=== PATIENT | female | born 1965 | race African-American/Black ===

== ENCOUNTER 2018-12-11 21:01 | Inpatient (IN) | payer OTHER ==
[~2018-12-11] VITALS: Ht 160 cm; Wt 108.4 kg
[2018-12-11 21:06] VITALS: BP 146/88
[2018-12-11 21:42] LABS: HEMOGLOBIN 14.2 gm/dL (12.0-15.0); MCH 32.7 pg (26.0-34.0); MCHC 34.6 g/dL (28.0-37.0); MCV 94.5 fL (80.0-100.0); PLATELET COUNT 180 thou/uL (150-400); RBC 4.34 mil/uL (4.20-5.00); RDW 13.8 % (10.5-14.5); WBC 10.9 thou/uL (4.0-11.0)
[2018-12-11 21:52] LABS: ANION GAP 13 mmol/L (7-16); BUN 19 mg/dL (7-18); CALCIUM 8.9 mg/dL (8.5-10.1); CHLORIDE 98 mmol/L (98-107); CO2 20 mmol/L (21-32); CREATININE 1.5 mg/dL (0.6-1.0); GLUCOSE 82 mg/dL (74-106); POTASSIUM 4.7 mmol/L (3.5-5.1); SODIUM 131 mmol/L (136-145)
[2018-12-11 22:00] LABS: ALBUMIN 2.8 g/dL (3.4-5.0); SGOT 55 U/L (15-37); SGPT 27 U/L (30-65); TOTAL BILIRUBIN 0.5 mg/dL (<0.1-1.0); TOTAL PROTEIN 7.7 g/dL (6.4-8.2); TROPONIN-I <0.06 ng/mL (<0.06)
[2018-12-11 22:20] LABS: ABSOLUTE NEUTROPHILS 7.5 thou/uL (1.4-8.2)
[2018-12-11 22:21] LABS: PLATELET ESTIMATE NORMAL; POLYCHROMASIA 1+
[2018-12-12] VITALS (9 sets, daily range): BP systolic 97–146; BP diastolic 52–90
--- NOTE | 2018-12-12 00:21 | NUR ---
SBAR AND DOCTORS NOTE TO CCU
[2018-12-12] MEDS ORDERED: ALBUTEROL2.5 MG/0.1 INH (00:43)
[2018-12-12] MEDS ORDERED: BREO ELLIPTA 21 EACH IH (00:43)
[2018-12-12] MEDS ORDERED: [UNRECOGNIZED DRUG - SUPPLY] (00:45)
[2018-12-12] MEDS ORDERED: MUCINEX600 MG (00:45)
[2018-12-12] MEDS ORDERED: NYAMYC15 GM TOP (00:46)
[2018-12-12 03:37] LABS: CALCIUM 7.9 mg/dL (8.5-10.1); CREATININE 1.3 mg/dL (0.6-1.0); POTASSIUM 4.1 mmol/L (3.5-5.1)
--- NOTE | 2018-12-12 05:01 | NUR ---
ASSUME CARE 0130. PT RUINNING A TEMP OF 99.0. TYLENOL GIVEN. PT ON ABX. TESTED POSITIVE FOR INFLUENZA A. ST ON NMONITOR. RESTING WELL. COMPLAINS OF NON CARDIAC CHEST PAIN. TOLERATES ACTIVITY WELL. ASSESSMENT CHARTED. PROGRESSING WITH POC. PLAN IS TO CONTINUE TREATING WITH ABX. WILL CONTINUE TO MONITOR AND FOLLOW WITH POC
--- NOTE | 2018-12-12 08:23 | EKG ---
[address] [address] ELECTROCARDIOGRAM REPORT Name: VASQUEZAMINA Room #: 210-P ADM IN M.R.#: [id number] Admission: 12/11/18 Attend Phys: Nilam Tadeo Discharge: Date of : 67 Report #: [id number] THIS REPORT FOR: //name// [facility] ED Test Date: 2018-12-11 Test Time: 21:14:08 Pat Name: AMINA VASQUEZ Department: Room: 210 Gender: F Research Program Internship: BRANDON : 1965 Requested By: Maren Muniz Order Number: [id number] MD: Ayaz Vargas Measurements Intervals Mcintosh Rate: 122 P: 70 MD: 159 QRS: 51 QRSD: 89 T: -15 QT: 319 QTc: 455 Interpretive Statements Sinus tachycardia Borderline T abnormalities, inferior leads Baseline wander in lead(s) V1 No previous ECG available for comparison Electronically Signed On 12-12-2018 8:22:58 DENTAL OFFICE COORDINATOR by Ayaz Vargas [email or web address] <ELECTRONICALLY SIGNED> By: Ayaz Vargas MD 12/12/18821 13 13 Ayaz Vargas MD /GM
[2018-12-12] MEDS ORDERED: SYMBICORT160 MCG/4. INH (11:19)
[2018-12-12] MEDS ORDERED: QUETIAPINE FUM100 MG PO (11:19)
[2018-12-12] MEDS ORDERED: NEURONTIN 400400 M1 PO (11:19)
[2018-12-12] MEDS ORDERED: SINGULAIR 10 MG10 M1 PO (11:20)
[2018-12-12] MEDS ORDERED: PROAIR HFA8.5 GM INH (11:20)
[2018-12-12] MEDS ORDERED: FLONASE 0.05%50 MCG NASAL (11:21)
[2018-12-12] MEDS ORDERED: NORCO 7.5-3251 EACH PO (11:22)
[2018-12-12] MEDS ORDERED: QUINAPRIL 20 MG20 MG PO (11:22)
[2018-12-12] MEDS ORDERED: HYDROCHLOROTH12.5 M1 PO (11:22)
[2018-12-12] MEDS ORDERED: SEROQUEL400 MG PO (11:23)
[2018-12-12] MEDS ORDERED: RIZATRIPTAN10 MG PO (11:24)
[2018-12-12] MEDS ORDERED: ATIVAN0.5 MG PO (11:24)
[2018-12-12] MEDS ORDERED: REMERON30 MG PO (11:26)
[2018-12-12] MEDS ORDERED: HYDROXYCHLOROQ200 M1 PO (11:26)
[2018-12-12] MEDS ORDERED: FOLIC ACID1 MG PO (11:27)
[2018-12-12] MEDS ORDERED: ZANAFLEX4 MG PO (11:27)
--- NOTE | 2018-12-12 12:20 | NUR ---
ASSUMED CARE OF PT AT SHIFT CHANGE. ASSESSMENTS CHARTED. MEDS GIVEN PER JAN. PT AOX4, C/O NON CARDIAC CHEST PAIN FROM COUGHING, BODY ACHES, MANAGED WITH PO MEDS AND COUGH SYRUP. NO SIGNS OF DISTRESS NOTED. O2 SATS WNL ON 2L. PT UP STANDBY ASSIST, WEAK, BUT STEADY GAIT. URINE OUTPUT [place]. WILL CONTINUE TO MONITOR AND FOLLOW POC.
[2018-12-12] MEDS ORDERED: PREDNISONE 5 MG5 M1 PO (13:37)
[2018-12-12] MEDS ORDERED: CALCIUM 600 +1 EAC1 PO (13:37)
[2018-12-12] MEDS ORDERED: NICOTROL10 MG INH (13:38)
[2018-12-13 00:15] VITALS: BP 128/59
[2018-12-13 04:07] LABS: CALCIUM 7.9 mg/dL (8.5-10.1); CREATININE 1.4 mg/dL (0.6-1.0); POTASSIUM 4.5 mmol/L (3.5-5.1)
[2018-12-13 04:37] VITALS: BP 138/78
--- NOTE | 2018-12-13 07:47 | NUR ---
ASSUME CARE 1900. PT COMPLAINS OF CONSISTENT CHEST PAIN DUE TO CONGHING. TESSALON PEARLS ORDERED AND PAIN MEDS GIVEN TO MANAGE PAIN. ASSESSMENT CHARTED. PROGRESSING WITH POC. CPAP AT NIGHT. PLAN IS TO CONTINUE FLU AND PNA TREATMENTS. WILL CONTINUE TO MONITOR AND FOLLOW WITH POC
[2018-12-13 08:00] VITALS: BP 121/77
[2018-12-13 12:22] VITALS: BP 126/80
[2018-12-13 17:32] VITALS: BP 136/75
--- NOTE | 2018-12-13 19:30 | NUR ---
ASSUMED CARE OF PT AT SHIFT CHANGE. ASSESSMENTS CHARTED. MEDS GIVEN PER JAN. PT AOX4, VSS, UP X1 TO STANDYBY ASSIST. O2 SAT WNL ON 2L O2, NO S/SX OF CARDIAC OR RESP DISTRESS NOTED. NSR ON MONITOR. NO C/O SOA. WILL CONTINUE TO MONITOR AND FOLLOW POC.
[2018-12-13 20:19] VITALS: BP 121/74
[2018-12-13] MEDS ORDERED: VITAMIN D3400 UNIT PO (22:45)
[2018-12-14 04:16] VITALS: BP 130/80
--- NOTE | 2018-12-14 06:44 | NUR ---
ASSUMED PT CARE AT 1900. VSS. PT A&0X4. PT HAD SOME COMPLAINTS ABOUT HOW SOME OF HER MEDS WERE INITIALLY RECONCILED SO I INPUTED THE CORRECT DOSES AND DIRECTION PER PT'S DICTATION. PT WAS ON 3L NC OVERNIGHT, NO EDEMA NOTED, SHE MENTIONS HAVING INCREASED ANXIETY RELATED TO THE WEATHER CONDITIONS SHE INTENDED TO GO HOME, ALPRAZOLAM ADMINISTERED. NO FURTHER COMPLAINTS OF DISTRESS OR DISSATISFATION. WILL CONTINUE TO MONITOR PER POC.
[2018-12-14] MEDS ORDERED: LEVAQUIN 750 M750 MG PO (09:29)
[2018-12-14] MEDS ORDERED: PREDNISONE 20 M20 MG PO (09:30)
[2018-12-14] MEDS ORDERED: OSELB75 PO (09:31)
[2018-12-14 09:35] VITALS: BP 122/73
--- NOTE | 2018-12-14 10:27 | NUR ---
Nutrition: pt admitted with CP, influenza A, PNA. Seen due to BMI 42, extreme class 3 obesity. Pt reports stable weights and no interest in diet education at this time. Intake adequate. Low nutrition risk.
[2018-12-14 11:39] VITALS: BP 123/84
[2018-12-14 13:27] VITALS: BP 123/84
--- NOTE | 2018-12-14 16:37 | NUR ---
ASSUMED CARE OF PATIENT AT 0700. PATIENT/VITALS STABLE. DENIES ANY PAIN. TOELRATES ACTIVITY WELL. ASSESSMENT CHARTED. PROGRESSING WELL WITH POC. PATIENT IS ANXIOUS TO BE DISCHARGED. DISCHARGE ORDERS PLACED. PATIENT RECEIVED IV ABX AND PO MEDS AND DISCHARGED. PATIENT STATES THAT SHE FEELS BETTER THAN SHE DID ON ADMISSION. A NEW IV WAS PLACED IN HER LEFT FOREARM TODAY FOR IV ABX DUE TO THE FACT THAT HER PREVIOUS IV WAS BURNING. PATIENT WEARING A MASK, TAKEN VIA WHEELCHAIR TO HER CAR OUTSIDE THE ER. HER CAR DID NOT INITIALLY START AND MARKETING SUPPORT SPECIALIST WENT WITH HER TO HER CAR WITH A BATTERY JUMP PACK. DISCHARGE PAPERWORK SIGNED AND PATIENT WAS GIVEN A WORK NOTE TO DISMISS HER FROM WORK WHILE IN THE HOSPITAL AND THROUGH 12/17/18, COPY IN CHART.
== END 2018-12-14 14:50 | disposition home or self-care (01) | DRG 871 ==
LOC: ER 21:01 → 2N 23:33 → EROBS 23:33 → 2N 12-12 01:22 → ENTRNSPT 12-14 14:30 → EDTRNSPTSTS 12-14 14:35 → 2N 12-14 14:50
PROVIDERS: Nurse Practitioner Family; Student in an Organized Health Care Education/Training Program; ADMIT Hospitalist
PROC: 5A09357 Assistance with Respiratory Ventilation, Less than 24 Consecutive Hours, Continuous Positive Airway Pressure (ICD-10-PCS; principal; 2018-12-13)
DX: A41.9 Sepsis, unspecified organism (principal); J18.9 Pneumonia, unspecified organism; J10.00 Influenza due to other identified influenza virus with unspecified type of pneumonia; I10 Essential (primary) hypertension; F41.9 Anxiety disorder, unspecified; F32.9 Major depressive disorder, single episode, unspecified; J45.909 Unspecified asthma, uncomplicated; G47.33 Obstructive sleep apnea (adult) (pediatric); K21.9 Gastro-esophageal reflux disease without esophagitis; G43.909 Migraine, unspecified, not intractable, without status migrainosus; G62.9 Polyneuropathy, unspecified; M32.9 Systemic lupus erythematosus, unspecified; Z88.6 Allergy status to analgesic agent; Z87.891 Personal history of nicotine dependence; Z79.899 Other long term (current) drug therapy
CPT/HCPCS: 10081

== ENCOUNTER → 2019-07-23 | Outpatient (CLI) | payer OTHER ==
[~2019-07-23] MED LIST: ALBUTEROL2.5 MG/0.1 INH; ATIVAN0.5 MG PO; BREO ELLIPTA 21 EACH IH; CALCIUM 600 +1 EAC1 PO; FLONASE 0.05%50 MCG NASAL; FOLIC ACID1 MG PO; HYDROCHLOROTH12.5 M1 PO; HYDROXYCHLOROQ200 M1 PO; LEVAQUIN 750 M750 MG PO; MUCINEX600 MG; NEURONTIN 400400 M1 PO; NICOTROL10 MG INH; NORCO 7.5-3251 EACH PO; NYAMYC15 GM TOP; OSELB75 PO; PREDNISONE 20 M20 MG PO; PREDNISONE 5 MG5 M1 PO; PROAIR HFA8.5 GM INH; QUETIAPINE FUM100 MG PO; QUINAPRIL 20 MG20 MG PO; REMERON30 MG PO; RIZATRIPTAN10 MG PO; SEROQUEL400 MG PO; SINGULAIR 10 MG10 M1 PO; SYMBICORT160 MCG/4. INH; VITAMIN D3400 UNIT PO; ZANAFLEX4 MG PO; [UNRECOGNIZED DRUG - SUPPLY]
== END ==
LOC: RAD 14:19
DX: M25.862 Other specified joint disorders, left knee (principal); M25.561 Pain in right knee; M25.562 Pain in left knee

== ENCOUNTER → 2019-08-03 | Outpatient (CLI) | payer OTHER | LOC: MRI 08:53 | DX: M25.462 Effusion, left knee (principal); M25.461 Effusion, right knee; R60.0 Localized edema; M22.41 Chondromalacia patellae, right knee ==